=== PATIENT | female | born 1950 | race Caucasian/White ===

== ENCOUNTER 2024-07-06 10:18 | Outpatient (AMB) | payer MEDICARE, SELFPAY ==
--- NOTE | 2024-07-06 10:33 | A.SPINEOV_ITS ---
Intake Visit Reasons: LBP Intake Note: Mrs. Lo is here today c/o low back pain that radiates down to the legs. Contact Worker Lithography Required: No Assessment & Plan Assessment & Plan (1) SI (sacroiliac) joint dysfunction: Code(s): M53.3 - Sacrococcygeal disorders, not elsewhere classified Category: Medical Plan Dear ROBBY Cota, Thank you for referring Tiffany to our office today. She is a pleasant 73-year-old female who comes in today with a chief complaint of low back pain and shooting pain bilaterally into her hips & groin. She reports this has been ongoing for the past 10 years. She has been evaluated by Dr. Duarte in pain management, and our colleagues at [facility] for this issue. She has chronic SI joint dysfunction bilaterally which has been temporized throughout the years via SI joint injections. She reports that during her 1st series of bilateral SI joint injections she got 100% relief of pain for about 6 months to a year. She did this for a couple of years, until the injections began wearing off sooner. She now reports she only has about 75% relief from the injections and that this last series of bilateral SI joint injections only lasted from January to March. She does report that her right sided pain is worse than her left, and has been present for longer than her left-sided pain. She has been to physical therapy in the past, and does at-home stretching and exercise daily. She is taking Tylenol daily, it was previously on NSAIDs but stopped them after her ablation procedure to treat her atrial fibrillation. She has tried muscle relaxers and pain medication in the past, but feels these have not been very helpful for her and make her feel in toxicated. She has a history of 3 natural childbirths. PMH: Seasonal allergies, GERD, glaucoma, history of atrial fibrillation with ablation procedure (not currently on anticoagulants). Social hx: The patient does not smoke, reports no substance use. Medications: Estradiol, progesterone, lansoprazole, turmeric, Zyrtec. Allergies: Metronidazole. Physical exam: On examination the patient has 5/5 strength in her bilateral upper and lower extremities. She is able to ambulate well without any assistive devices. She has a notably difficult time rising from a seated position. Her reflexes are 2+ intact. She has no significant sensational deficits. (+) Melissa finger test, (+) gaenslen's test (more pronounced on the right), (+) SI joint compression test bilaterally (again more pronounced on the right). equivocal Juan Jose's bilaterally. (-) bilateral straight leg raise. (-) Marino's. (-) clonus. Imaging review: MRI of the lumbar spine completed here at [facility] on 06/24/2024 shows significant loss of disc height between L4-5 and L5-S1. There is no significant central canal or foraminal stenosis despite this disc height loss. Some endplate inflammation at L5-S1 noted on STIR series. Impression: Tiffany is a pleasant 73-year-old female who comes in today with a chief complaint of bilateral SI joint dysfunction. This has been ongoing for the past 10 years and is well documented throughout her records from Dr. Duarte's office and [facility]. She initially was responding very well to the SI joint injections getting complete relief of her p ain. Unfortunately she is now to the point after years of injections that they are no longer working to help alleviate her pain. I believe based on her extensive history with this problem and her examination today showing several tests positive for SI joint dysfunction she will be a good candidate for a initially right-sided SI joint fusion, as this is the more symptomatic side. We discussed with this procedure would entail at length during this visit today, and I answered all of her questions to the best of my ability. I will discuss this case with the attending neurosurgeon Dr. Miramontes and call the patient next week with a surgical recommendation. Thank you for allowing us to care for your patient. The total time spent with this visit with this patient was 45 minutes reviewing history, physical exam, MRI imaging review, and implementation of treatment plan or further diagnostic testing Tomi Miramontes MD,PhD [facility] Coding Level of Care Code New Pt Level 4 (78355) Diagnoses SI (sacroiliac) joint dysfunction M53.3
== END 2024-07-06 11:25 | disposition home or self-care (01) ==
PROVIDERS: PCP Internal Medicine; Referring Provider Physician Assistant; Visit Provider Physician Assistant
DX: M53.3 Sacrococcygeal disorders, not elsewhere classified (principal)
CPT/HCPCS: 99204

== ENCOUNTER → 2024-07-06 10:18 | Outpatient (BNVA) | payer MEDICARE, SELFPAY | PROVIDERS: PCP Internal Medicine; Referring Provider Physician Assistant; Visit Provider Physician Assistant | DX: M53.3 Sacrococcygeal disorders, not elsewhere classified (principal) | CPT/HCPCS: 99202 ==

== ENCOUNTER 2024-08-18 15:52 | Outpatient (REF) | payer MEDICARE, SELFPAY | END 2024-08-18 15:53 | disposition home or self-care (01) | LOC: HO.CT 15:52 | PROVIDERS: PCP Internal Medicine; Visit Provider Physician Assistant | DX: M53.3 Sacrococcygeal disorders, not elsewhere classified (principal) | CPT/HCPCS: 72192 ==

== ENCOUNTER → 2024-08-18 15:55 | Outpatient (BNV) | payer MEDICARE, SELFPAY | PROVIDERS: PCP Internal Medicine; Visit Provider Radiology Diagnostic Radiology | DX: M53.3 Sacrococcygeal disorders, not elsewhere classified (principal); M46.1 Sacroiliitis, not elsewhere classified | CPT/HCPCS: 72192 ==